=== PATIENT | female | born 2005 | race Caucasian/White ===

== ENCOUNTER 2024-10-06 13:35 | Outpatient (CLI) | payer MEDICAID, SELFPAY ==
--- OUTSIDE RECORDS SUMMARY | 2024-10-06 13:38 | XMS_ITS | Clinical Summary ---
Author Organization [facility] [employer] Address [address] [place] [address] Care Team Providers Care Psychological Stress Evaluator Name Role Phone Dago Akers MD Primary Care Provider [phone] Source Comments This disclosure is being made pursuant to the [employer] program and maynot contain all information available regarding this patient.[facility] Allergies Active Allergy Reactions Criticality Noted Date Comments Environmental Sneezing Low 07/17/2022 Medications No known medications Active Problems Problem Noted Date Diagnosed Date Hypothyroidism 07/17/2022 History of concussion 07/17/2022 Food intolerance in child 07/17/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 07/31/2018 Growth deceleration 07/31/2018 Immunizations Immunization Administration Dates Next Due COVID-19 (PFIZER-purple cap) MRNA ages 12+ 08/08/2021,07/06/2021 DTaP (Infanrix) DTaP 06/19/2006 DTaP, unspecified formulation 06/19/2006 DTaP-Hepatitis B-Polio (Pedi arix) [id number]-XpiV-OAA 06/27/2005,04/11/2005,02/08/2005 DTaP-Polio (Kinrix) DTaP-IPV 07/13/2009 Haemophilus Influenzae Type B unspecified formulation 12/12/2006,06/27/2005,04/11/2005,02/08 Human Papillomavirus ([place] 9) 9vHPV 06/28/2019,05/13/2018 Influenza (FLULAVAL) IIV4, p refilled syringe 08/23/2020 Influenza, Live (FLUMIST) Tr ivalent, Intranasal 06/24/2011 LIVE Igepewk-Khpqy-Fuhsaep ( M-M-R II) MMR 06/16/2009,06/19/2006 LIVE Varicella (Varivax) YASMIN 07/17/2022,06/16/20 09 Meningococcal B (Bexsero) MenB-4C 07/03/2021 Meningococcal Conjugate (Men veo) MCV4 MenACWY-CRM 07/03/2021,05/09/2017 Pneumococcal Conjugate-7 (Pr evnar 7) PCV7 12/12/2006,06/27/2005,04/11/2005,02/08 Tdap 05/09/2017 Family History Medical History Relation Name Comments Hyperlipidemia Father Long Obesity Father Long Thyroid disease Father Long Cancer Maternal Grandfather Franklyn Heart disease Maternal Grandfather Franklyn Hyperlipidemia Maternal Grandfather Franklyn Hypertension Maternal Grandfather Franklyn Heart disease Maternal Grandmother Xuan Mental illness Maternal Grandmother Xuan Thyroid disease Maternal Grandmother Xuan Autoimmune disease Mother Millicent defects Mother Millicent Cancer Mother Millicent Delayed puberty Mother Millicent Fertility Problem Mother Millicent Thyroid disease Mother Millicent Diabetes Paternal Grandfather Tom Heart disease Paternal Grandfather Tom Short stature Paternal Grandfather Tom Cancer Paternal Grandmother Stefani Relation Name Status Comments Father Long Alive 5'9.5 250lb Maternal Grandfather Franklyn Alive Maternal Grandmother Xuan (Age 26) Mother Millicent Alive menarche 16yo 5 '1 147lb Paternal Grandfather Tom (Age 71) Paternal Grandmother Stefani (Age 76) Social History Tobacco Use Types Packs/Day Years Used Date Smoking Tobacco: Never Smokeless Tobacco: Never Tobacco Cessation:Counseling Given: Not Answered Comments:Denies any secondhand smoke exposure Alcohol Use Standard Drinks/Week Comments No 0 (1 standard drink = 0.6 oz pur e alcohol) PHQ-2 Answer Date Recorded PHQ-2 Total Score 0 07/17/2022 Comments No Sex and Gender Information Value Date Recorded Sex Assigned at Not on file 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 Gender Identity Not on file Sexual Orientation Not on file Last Filed Vital Signs Vital Sign Reading Time Taken Comments Blood Pressure 112/62 09/17/2022 8:18 AM CDT Pulse 70 09/17/2022 8:18 AM CDT Temperature 37 C (98.6 F) 09/17/2022 8:18 AM CDT Respiratory Rate 18 07/17/2022 4:48 PM CDT Oxygen Saturation 98% 09/17/2022 8:18 AM CDT Inhaled Oxygen Concentration - - Weight 77.6 kg (171 lb) 09/17/2022 8:18 AM CDT Height 160 cm (5' 3) 07/17/2022 4:48 PM CDT Body Mass Index - - Plan of Treatment Health Maintenance Due Date Last Done Comments Lab-Hepatitis C Screening 2004 Chlamydia Screening 2020 Annual Wellness Visit 2022 COVID-19 Vaccine ( season) 2024 08/08/2021, 07/06/2021 Influenza Vaccine (#1) 2024 08/23/2020, 2010 Tetanus/Pertussis Vaccine Teen/Adult (7 - Td or Tdap) 05/09/2027 05/09/2017, 07/13/2009, 06/19/2006, Additional history exists Zoster (Shingles) Vaccine 50+ (1 of 2) 2054 RSV Adult (1 - 1-dose 75+ series) 2079 Hepatitis B Vaccine Completed 06/27/2005, 04/11/2005, 02/08/2005 HIB Vaccine Completed 12/12/2006, 06/17, 04/11/2005, Additional history exists Pneumococcal Vaccines 0-64 yo Aged Out 12/12/2006, 06/27/2005, 04/11/2005, Additional history exists No longer eligible based on patient's age to complete this topic IPV Vaccine Completed 07/13/2009, 06/17, 04/11/2005, Additional history exists HPV Vaccine (F:[id number],M: 9-22) Completed 06/28/2019, 05/13/2018 Meningococcal Conjugate Vaccine Completed 07/03/2021, 05/09/2017 Hepatitis A Vaccine Aged Out No longe r eligible based on patient's age to complete this topic RSV < 20 Months Aged Out No longer el igible based on patient's age to complete this topic Insurance [address] [place], [place] [id number] Care Teams Psychological Stress Evaluator Relationship Specialty Start Date End Date Dago Akers MD [address] [id number] PCP - General Family Medicine 06/21/22
== END 2024-10-06 13:36 | disposition home or self-care (01) ==
LOC: NFLDREF 13:36
PROVIDERS: Visit Provider Registered Nurse
DX: Z00.00 Encounter for general adult medical examination without abnormal findings (principal); N94.6 Dysmenorrhea, unspecified
CPT/HCPCS: 84443

== ENCOUNTER 2025-01-24 18:45 | Outpatient (CLI) | payer BC, SELFPAY | END 2025-01-24 18:46 | disposition home or self-care (01) | LOC: NFLDREF 01-26 08:18 | PROVIDERS: Visit Provider Family Medicine | DX: N30.00 Acute cystitis without hematuria (principal); B96.20 Unspecified Escherichia coli [E. coli] as the cause of diseases classified elsewhere | CPT/HCPCS: 87086 ==